=== PATIENT | female | born 1990 | race Caucasian/White ===

== ENCOUNTER 2018-11-20 13:38 | Inpatient (IN) | payer BC ==
[~2018-11-20] VITALS: Ht 167.6 cm; Wt 88.9 kg
[2018-11-20] MEDS ORDERED: OXYTOCIN/0.9 % SODIUM CHLORIDE 1,000 ML IV SCH (17:52)
[2018-11-20] MEDS ORDERED: NALBUPHINE HCL 10 MG/ML AMP IM PRN (18:00)
[2018-11-20] MEDS ORDERED: DINOPROSTONE 10 MG SUPP VG ONE (18:00)
[2018-11-20 18:35] LABS: HEMOGLOBIN 11.4 g/dL (12.0-16.0); MEAN CORPUSCULAR VOLUME 86 fL (79.0-98.0); RED BLOOD CELL COUNT(AUTO) 3.95 MIL/uL (4.2-6.2); WHITE BLOOD COUNT (AUTO) 6.4 K/uL (4.8-10.8)
[2018-11-20 18:36] LABS: BASOPHILS % (AUTO) 0.2 % (0.0-2.0); EOSINOPHILS % (AUTO) 0.5 % (0.0-4.0); LYMPHOCYTES % (AUTO) 15.7 % (20.5-51.5); MEAN CORPUSCULAR HEMOGLOBIN 29 pg (27-31); MEAN CORPUSCULAR HGB CONC 34 % (32-36); MONOCYTES # (AUTO) 0.4 K/uL (0.0-1.0); MONOCYTES % (AUTO) 6.5 % (1.7-9.3); NEUTROPHILS # (AUTO) 4.9 K/uL (1.8-7.7); NEUTROPHILS % (AUTO) 77.1 % (40.0-70.0); PLATELET COUNT (AUTO) 272 K/uL (130-430); RED CELL DISTRIBUTION WIDTH 15.9 % (9.0-15.0)
[2018-11-20] MEDS: LR 1,000 ML IV SCH (18:39)
[2018-11-20 18:45] VITALS: BP_SYST 130
[2018-11-21] MEDS ORDERED: DINOPROSTONE 10 MG SUPP VG ONE ×2 (08:50→10:00)
[2018-11-21] MEDS: LR 1,000 ML IV SCH (11:12)
[2018-11-21 17:22] LABS: BILIRUBIN,URINE NEGATIVE (NEGATIVE); BLOOD, URINE 2+ (NEGATIVE); CLARITY/URINE CLEAR (CLEAR); COLOR,URINE YELLOW (YELLOW); GLUCOSE,URINE NEGATIVE (NEGATIVE); KETONES,URINE TRACE (NEGATIVE); LEUKOCYTE ESTERASE ,URINE TRACE (NEGATIVE); NITRITE, URINE NEGATIVE (NEGATIVE); PROTEIN URINE NEGATIVE (NEGATIVE); UROBILINOGEN,URINE 0.2 (0.2-1.0)
[2018-11-21 17:36] LABS: BACTERIA,URINE FEW /HPF (None Seen)
[2018-11-21 17:41] LABS: HEMOGLOBIN 12.2 g/dL (12.0-16.0); WHITE BLOOD COUNT (AUTO) 6.3 K/uL (4.8-10.8)
[2018-11-21 17:42] LABS: BASOPHILS % (AUTO) 0.3 % (0.0-2.0); EOSINOPHILS % (AUTO) 0.3 % (0.0-4.0); HEMATOCRIT 36.6 % (36-48); LYMPHOCYTES % (AUTO) 15.1 % (20.5-51.5); MEAN CORPUSCULAR HEMOGLOBIN 29 pg (27-31); MEAN CORPUSCULAR HGB CONC 33 % (32-36); MEAN CORPUSCULAR VOLUME 87 fL (79.0-98.0); MONOCYTES % (AUTO) 5.5 % (1.7-9.3); NEUTROPHILS % (AUTO) 78.8 % (40.0-70.0); PLATELET COUNT (AUTO) 286 K/uL (130-430)
[2018-11-21 17:43] LABS: MONOCYTES # (AUTO) 0.3 K/uL (0.0-1.0); NEUTROPHILS # (AUTO) 4.9 K/uL (1.8-7.7)
[2018-11-21 17:46] LABS: CALCIUM 8.6 mg/dL (8.4-11.0); CREATININE 0.32 mg/dL (0.55-1.30); POTASSIUM 3.9 mmol/L (3.5-5.1); TOTAL BILIRUBIN 0.4 mg/dL (0.0-1.0)
[2018-11-21 17:47] LABS: ALBUMIN 2.6 g/dL (3.4-4.8); URIC ACID 3.8 mg/dL (2.4-7.0)
[2018-11-21] MEDS ORDERED: ROPIVACAINE 0.2% 100 ML ONE (21:42)
[2018-11-21] MEDS ORDERED: fentaNYL CITRATE/PF 100 MCG/2 ML AMP ONE (21:42)
[2018-11-21] MEDS ORDERED: LR 500 ML IV ONE (23:22)
[2018-11-21] MEDS ORDERED: FENT2mCg/mL-ROPIVA0.2%/NS EPID 150 ML EP SCH (23:30)
[2018-11-22] MEDS ORDERED: ePHEDrine sulfate 50 MG/ML VIAL IVP ONE (02:00)
[2018-11-22] MEDS ORDERED: OXYTOCIN/0.9 % SODIUM CHLORIDE 1,000 ML IV SCH ×2 (07:02→10:26)
[2018-11-22] MEDS ORDERED: OXYTOCIN/0.9 % SODIUM CHLORIDE 1,000 ML IV ONE (10:26)
[2018-11-22] MEDS ORDERED: HYDROCORTISONE 0.5%, 28.35 GM TOPICAL CREAM TP PRN (10:30)
[2018-11-22] MEDS ORDERED: METHYLERGONOVINE MALEATE 0.2 MG TABLET PO PRN (10:30)
[2018-11-22] MEDS ORDERED: ANUSOL 1 EA SUPP.RECT (PREPARATION H) RC PRN (10:30)
[2018-11-22] MEDS ORDERED: OXYCODONE/ACETAMINOPHEN 5-325 TABLET PO PRN ×2 (10:30)
[2018-11-22] MEDS ORDERED: ACETAMINOPHEN 325 MG TABLET PO PRN (10:30)
[2018-11-22] MEDS ORDERED: WITCH HAZEL LEAF 1 MED.PAD MED.PAD TP PRN (10:30)
[2018-11-22] MEDS ORDERED: DERMOPLAST SPRAY TP PRN (10:30)
[2018-11-22] MEDS ORDERED: DIPH-TET-PERTUS Vaccine 0.5 ML VIAL (ADACEL) I.M. PRN (10:30)
[2018-11-22] MEDS ORDERED: SENNOSIDES/DOCUSATE SODIUM 1 TAB TABLET(SENOKOT-S) PO PRN (10:30)
[2018-11-22] MEDS ORDERED: LANOLIN 7 GM OINT. TP PRN (10:30)
[2018-11-22] MEDS ORDERED: MEASLES,MUMPS&RUBELLA VACC/PF 12500 UNIT/0.5 ML VIAL SUBQ PRN (10:30)
[2018-11-22] MEDS ORDERED: RHO(D) IMMUNE GLOBULIN/MALTOSE 1500 UNITS/1.3 ML (WINHRO) IM PRN (10:30)
[2018-11-22] MEDS: IBUPROFEN 600 MG TABLET PO SCH ×3 (12:40→23:24)
[2018-11-22] MEDS: DOCUSATE SODIUM 100 MG CAPSULE PO PRN (17:56)
[2018-11-22] MEDS ORDERED: TEMAZEPAM 15 MG CAPSULE PO PRN (21:00)
[2018-11-23 07:58] LABS: HEMATOCRIT 27.2 % (36-48); HEMOGLOBIN 9.2 g/dL (12.0-16.0)
[2018-11-23] MEDS ORDERED: ROPIVACAINE 40 MG/20 ML AMP EP ONE (08:54)
[2018-11-23] MEDS ORDERED: ePHEDrine sulfate 50 MG/ML VIAL IVP ONE (08:54)
[2018-11-23] MEDS ORDERED: LIDOCAINE PF 1% 30ML(POUR BTL) INJ ONE (08:54)
[2018-11-23] MEDS ORDERED: MINERAL OIL 30 ML UDC PO ONE (08:54)
[2018-11-23] MEDS: IBUPROFEN 600 MG TABLET PO SCH ×2 (11:58→17:49)
[2018-11-23] MEDS: DOCUSATE SODIUM 100 MG CAPSULE PO PRN (17:49)
[2018-11-24] MEDS: IBUPROFEN 600 MG TABLET PO SCH ×3 (00:13→12:00)
[2018-11-24] MEDS: DOCUSATE SODIUM 100 MG CAPSULE PO PRN (06:19)
== END 2018-11-24 13:45 | disposition home or self-care (01) | DRG 807 ==
LOC: SPU 17:28
PROVIDERS: ADMIT Obstetrics & Gynecology; ATTEND Obstetrics & Gynecology
PROC: 0UQGXZZ Repair Vagina, External Approach (ICD-10-PCS; principal; 2018-11-22)
PROC: 10E0XZZ Delivery of Products of Conception, External Approach (ICD-10-PCS; 2018-11-22)
PROC: 3E0R3BZ Introduction of Anesthetic Agent into Spinal Canal, Percutaneous Approach (ICD-10-PCS; 2018-11-22)
PROC: 00HU33Z Insertion of Infusion Device into Spinal Canal, Percutaneous Approach (ICD-10-PCS; 2018-11-22)
DX: O71.4 Obstetric high vaginal laceration alone (principal); Z37.0 Single live birth; Z3A.39 39 weeks gestation of pregnancy
CPT/HCPCS: 36415; 80053; 81000-TC; 81002-TC; 84550-TC; 85018-TC; 85025; 86592; 86886; 86900; 86901; 87086; J2001; J2590; J2795; J3010; J7120